=== PATIENT | female | born 1950 | race Caucasian/White ===

== ENCOUNTER 2020-02-29 02:24 | Emergency (ER) | END 2020-02-29 04:50 | disposition left against medical advice (07) | LOC: ER 02:24 | DX: Z53.21 Procedure and treatment not carried out due to patient leaving prior to being seen by health care provider (principal) ==

== ENCOUNTER 2020-03-19 14:01 | Emergency (ER) | payer MEDICARE ==
--- NOTE | 2020-03-19 14:47 | PSYCHOLOGICAL NOTE ---
Psych Note - Psych Note Date seen by psych provider: 03/19/20 Psych Note: At [address] [place] [employer] Crisis Counselor provided the following collateral information: Patient moved from [place] to [place] 3-4 months ago. Patient has a history of alcoholism, depression, and psychosis. She was discharged from [facility] for alcohol detoxification over the past couple days. She fell 4 times from yesterday through this morning and sustained injuries (possible broken nose, back pain). Unsure if falls are related to alcohol or medications. He medication were scattered (not even in respective bottles) throughout her disorganized apartment, she had pain medications from 2 years ago, and she took all her medication this morning when there are some to be taken at night. She presented disoriented at times and noted visual hallucination of a midget running up top her with a sign. Patient thinks she can drive even in current state. There have been multiple EMS and Law Enforcement calls. [facility] are involved and Nicole ended up on scene. Clinical Presentation: Altered Mental Status Psychosis Recent Alcohol Detoxification Impression/Plan: Patient has severely impaired insight and judgment related to her ability to make decisions, understand what's going on, drive, and care for herself. Patient is recommended for a 24 Hour Petition for Evaluation. Consulted with Dr. Flowers regarding the management and care of patient. ED Physician in agreement with recommendations.
--- NOTE | 2020-03-19 15:09 | ER Document Report ---
ED General <JEFFY PAIZ - Last Filed: 03/20/20 17:30> - General Mode of Arrival: Medic Information source: Patient <RACIEL CANTRELL - Last Filed: 03/20/20 19:01> - General Chief Complaint: Altered Mental Status Stated Complaint: PSYCH Time Seen by Provider: 03/19/20 14:26 Primary Care Provider: [facility] [Outside] - Follow up as needed (local voluntary inpatient for detoxification and other mental health issues) [facility] [Outside] - Follow up as needed (To initiate services walk in Tuesday-Tuesday 8:00AM-12:00PM/Noon.) [facility] [Outside] - Follow up as needed [facility] [Outside] - Follow up as needed (To initiate services walk in Tuesday-Tuesday 8:00AM-4:30PM.) [facility] [Outside] - Follow up as needed BRANDI SANCHEZ DO [Primary Care Provider] - Follow up as needed Notes: 69-year-old female patient presenting to the emergency department with complaints of recurrent falls. Patient was apparently discharged from the [facility] for alcohol abuse approximately 3 days ago. She reports that she fell 4 times yesterday and one time this morning. Apparently her landlord got involved when they went to check on her today found her to have bruising to her face and abrasions across her nose so they decided to call EMS and law enforcement. It is reported to me that Dr. Rashawn Flowers was on scene as she was working today as a [facility] mental health liaison. She had concerns about patient's ability to make decisions for herself and requested that she be brought to the emergency department for IVC and mental health evaluation. Patient reports she lives alone she moved here a few months ago and has not been able to get her apartment set up secondary to her chronic back pain. She denies any suicidal homicidal ideations. She does get off topic easily but does mostly answer questions appropriately. She reports she was discharged from [facility] a few days ago. She does report that she bought some alcohol immediately after she was discharged however she took one sip and decided that she did not want to "go down that road again". Patient denies any acute complaints today, states that she has pain to her bilateral knees and back which are both chronic in nature. (RACIEL CANTRELL) - Related Data Allergies/Adverse Reactions: No Known Allergies Allergy (Unverified 02/29/20 03:41) Past Medical History - General Information source: Patient, Emergency Med Personnel - Social History Smoking Status: Unknown if Ever Smoked Chew tobacco use (# tins/day): No Frequency of alcohol use: Heavy - quit recently Drug Abuse: None Family History: Reviewed & Not Pertinent - Past Medical History Cardiac Medical History: Reports: Hx Congestive Heart Failure - possible, dx by [facility] recently, Hx Hypercholesterolemia, Hx Hypertension Pulmonary Medical History: Reports: None EENT Medical History: Reports: None Neurological Medical History: Reports: None Endocrine Medical History: Reports: None Renal/ Medical History: Reports: None Malignancy Medical History: Reports: None GI Medical History: Reports: None Musculoskeletal Medical History: Reports None Skin Medical History: Reports None Psychiatric Medical History: Reports: Hx Depression Surgical Hx: Negative - Immunizations History of Pneumococcal Vaccine: Unknown History of Influenza Vaccine for 03/2019 - 08/2019 Season: Unknown <RACIEL CANTRELL - Last Filed: 03/20/20 19:01> Review of Systems - Review of Systems Constitutional: No symptoms reported EENT: No symptoms reported Cardiovascular: No symptoms reported Respiratory: No symptoms reported Gastrointestinal: No symptoms reported Genitourinary: No symptoms reported Female Genitourinary: No symptoms reported Musculoskeletal: No symptoms reported Skin: See HPI Hematologic/Lymphatic: No symptoms reported Neurological/Psychological: No symptoms reported <RACIEL CANTRELL - Last Filed: 03/20/20 19:01> Physical Exam - General General appearance: Alert In distress: None - HEENT Eyes: Periorbital ecchymosis - Right Conjunctiva: Normal Extraocular movements intact: Yes Pupils: PERRL Ears: Normal External canal: Normal Tympanic membrane: Normal Nasal: Ecchymosis Mouth/Lips: Normal Mucous membranes: Normal Pharynx: Normal Neck: Normal - Respiratory Respiratory status: No respiratory distress Chest status: Tender - Left ribs. No: Ecchymosis Breath sounds: Normal - Cardiovascular Rhythm: Regular Heart sounds: Normal auscultation, S1 appreciated, S2 appreciated Normal capillary refill: Yes - Abdominal Inspection: Obese Distension: No distension Bowel sounds: Normal Tenderness: Nontender Organomegaly: No organomegaly - Back Back: Normal, Nontender. No: CVA tenderness - Extremities General upper extremity: Normal inspection, Nontender, Normal color, Normal ROM, Normal temperature General lower extremity: Normal inspection, Nontender, Normal color, Normal ROM, Normal temperature, Normal weight bearing. No: Terra's sign - Neurological Neuro grossly intact: Yes Cognition: Normal Orientation: AAOx4 Edwards Coma Scale Eye Opening: Spontaneous Darrick Coma Scale Verbal: Oriented Edwards Coma Scale Motor: Obeys Commands Edwards Coma Scale Total: 15 Speech: Normal Sensory: Normal - Psychological Associated symptoms: Normal affect, Normal mood - Skin Skin Temperature: Warm Skin Moisture: Dry Skin Color: Normal <RACIEL CANTRELL - Last Filed: 03/20/20 19:01> - Vital signs Vitals: Temp Pulse Resp BP Pulse Ox 98.5 F 76 16 122/73 100 03/19/20 15:01 03/19/20 15:01 03/19/20 15:01 03/19/20 15:01 03/19/20 15:01 Course - Laboratory Result Diagrams: 03/19/20 14:30 03/19/20 14:30 <JEFFY PAIZ - Last Filed: 03/20/20 17:30> - Laboratory Result Diagrams: 03/19/20 14:30 03/19/20 14:30 <RACIEL CANTRELL - Last Filed: 03/20/20 19:01> - Re-evaluation Re-evalutation: Patient's work-up today shows an acute urinary tract infection. She was given an injection of Rocephin. A urine culture is pending. Patient is alert, oriented, denies SI or HI. She has been placed on IVC papers by the mental health team. I have made an inquiry to them regarding the reason for the IVC petition. I am awaiting clarification. I have also briefed my attending physician Dr. Rivera on the situation. Patient asking why she is being held here against her will. She states that law enforcement went into her apartment and went through all of her belongings without a warrant. Patient admits that her house is unorganized. She states she has not completely unpacked and set up her apartment away she would like it secondary to her chronic pain issues and not having any help in the area other than her daughter who is been unable to come and help her. She does admit that her medications were scattered across a dresser. She states she usually keeps them in her nightstand however it was easier for her to get them off of the top of the dresser. She denies abusing any medications. Handout given to Elsy Bates at the bedside. Dr. Flowers also came to the bedside we all explained to the patient what the status was and that she will be staying here on a 24 petition due to concerns that Dr. Flowers had at the home. Patient is very upset and disagreeable to this. . 03/20/20 17:30 Patient reevaluated, she has been now cleared by mental health team. She has been given resources, she has been set up with community paramedics. Patient asked for a prescription for a walker one was provided. Her prescription for cephalexin was also sent in. Urine culture is still pending. Patient understands ED return precautions. (RACIEL CANTRELL) - Vital Signs Vital signs: Temp Pulse Resp BP Pulse Ox 99.2 F 89 18 118/69 96 03/20/20 14:00 03/20/20 14:00 03/20/20 14:00 03/20/20 14:00 03/20/20 14:00 - Laboratory Laboratory results interpreted by me: 03/19/20 03/19/20 03/19/20 14:30 14:30 15:40 MCV 100 H MCH 34.5 H AST 40 H Urine Protein 30 H Urine Ketones 20 H Ur Leukocyte Esterase LARGE H Salicylates < 1.0 L Acetaminophen < 10 L Discharge <JEFFY PAIZ - Last Filed: 03/20/20 17:30> <RACIEL CANTRELL - Last Filed: 03/20/20 19:01> - Discharge Clinical Impression: Altered mental status, Has recently quit alcohol use Urinary tract infection Qualifiers: Urinary tract infection type: site unspecified Hematuria presence: without hematuria Qualified Code(s): N39.0 - Urinary tract infection, site not specified Condition: Stable Disposition: HOME, SELF-CARE Additional Instructions: You have been evaluated by both medical and behavioral health teams for altered mental status and recent alcohol detoxification. You have been deemed appropriate for discharge. While in the emergency department you received the following services: Medical screening and assessment, nursing services, dietary services, pharmacological services, one-on-one counseling and/or psychotherapy, environmental services, and continuous observation by a patient product safety administrator. You should take only current home medication that is prescribed to you. Any doctors you see should be informed of all medications you are taking. Often times carrying an updated list is beneficial. Your doctors should also be made aware of your alcohol addiction history. You are encouraged to abstain from any alcohol use and link with as many professional supports as possible. Altered Mental Status An altered mental status is a change in the normal functioning of the brain. This alteration of function can range from minor decreased brain function with some forgetfulness and confusion to complete loss of consciousness and coma. There are many possible causes of an altered mental status and include brain injuries such as trauma or strokes, problems with oxygen supply to the brain, fever and infections of the brain and/or elsewhere in the body, metabolic abnormalities such as low or high blood sugar, overdoses or excessive medication ingestion, and mental and psychiatric illnesses. Sometimes the altered mental status resolves and a definite cause is not determined. If a cause for your altered mental status was found, it has likely been corrected. Your evaluation has not shown any condition that requires that you be admitted to the hospital. It is believed that you are safe to leave and return to your home. If you have a return of your symptoms, you should return for re-evaluation. Follow-Up Plan: You are recommended to follow up with your Primary Care Physician (medical issues and any other referrals you may need such as orthopedic as you mentioned), a local mental health agency for substance abuse treatment ([facility] or [facility]), and neurology (given age, prolonged alcohol use). Referrals to wrap around services such as [facility] have been made, they can assist with medications, often times with ability to get blister packs. If your symptoms persist or worsen co ntact your physician immediately, utilize mobile crisis, or return to the emergency department. Prescriptions: Walker [Ultra-Light Rollator] 1 each NOW #1 each Referrals: BRANDI SANCHEZ DO [Primary Care Provider] - Follow up as needed [facility] [Outside] - Follow up as needed [facility] [Outside] - Follow up as needed [facility] [Outside] - Follow up as needed (To initiate services walk in Tuesday-Tuesday 8:00AM-4:30PM.) [facility] [Outside] - Follow up as needed (To initiate services walk in Tuesday-Tuesday 8:00AM-12:00PM/Noon.) [facility] [Outside] - Follow up as needed (local voluntary inpatient for detoxification and other mental health issues)
[2020-03-19 15:28] LABS: ABSOLUTE EOSINOPHILS # (AUTO) 0.3 10^3/uL (0.0-0.6); ABSOLUTE LYMPHOCYTES (AUTO) 1.6 10^3/uL (0.5-4.7); ABSOLUTE MONOCYTES (AUTO) 0.7 10^3/uL (0.1-1.4); ABSOLUTE NEUT (AUTO) 5.2 10^3/uL (1.7-8.2); BASOPHILS % (AUTO) 0.6 % (0-2); HEMATOCRIT 37.6 % (36.0-47.0); LYMPHOCYTES % (AUTO) 20.8 % (13-45); MEAN CORPUSCULAR HEMOGLOBIN 34.5 pg (27.0-33.4); MEAN CORPUSCULAR HGB CONC 34.5 g/dL (32.0-36.0); MEAN CORPUSCULAR VOLUME 100 fl (80-97); PLATELET COUNT 204 10^3/uL (150-450); RED BLOOD COUNT 3.76 10^6/uL (3.72-5.28); RED CELL DISTRIBUTION WIDTH 12.5 % (11.5-14.0); SEGMENTED NEUTROPHILS % (AUTO) 65.6 % (42-78); TOTAL CELLS COUNTED % (AUTO) 100 %; WHITE BLOOD COUNT 7.9 10^3/uL (4.0-10.5)
--- NOTE | 2020-03-19 15:40 | RADIOLOGY REPORT (SQ) ---
EXAM DESCRIPTION: CT FACIAL AREA WITHOUT IMAGES COMPLETED DATE/TIME: 03/19/2020 3:23 pm REASON FOR STUDY: fall injury COMPARISON: None. TECHNIQUE: Noncontrasted images through the facial bones and orbits windowed for bone and soft tissu e. Additional coronal and sagittal reconstructed images reviewed. All images stored on PACS. All CT scanners at this facility use dose modulation, iterative reconstruction, and/or weight based d osing when appropriate to reduce radiation dose to as low as reasonably achievable (ALARA). [facility]: Dose Right [facility]: CareDose [facility]: Dose Right [facility]: Teradose 4D [facility]: [employer] RADIATION DOSE: CT Rad equipment meets quality standard of care and radiation dose reduction techniq ues were employed. CTDIvol: 30.4 mGy. DLP: 513 mGy-cm. mGy. LIMITATIONS: None. FINDINGS: FACIAL BONES: No fracture or bone lesion. ORBITS: Intact. No fracture. Symmetric intact globes and retroorbital soft tissues. PARANASAL SINUSES: No fluid levels. Prior maxillary antrectomies. SOFT TISSUES: No mass or edema. INFERIOR BRAIN: See separate report of the same date. OTHER: No other significant finding. IMPRESSION: NO ACUTE FINDINGS. TECHNICAL DOCUMENTATION: JOB ID: [id number] Quality ID # [id number]: Final reports with documentation of one or more dose reduction techniques (e.g., Au tomated exposure control, adjustment of the mA and/or kV according to patient size, use of iterative reconstruction technique) 2010 [employer]- All Rights Reserved Reading location - IP/workstation name: [email or web address]
--- NOTE | 2020-03-19 15:42 | RADIOLOGY REPORT (SQ) ---
EXAM DESCRIPTION: CT HEAD WITHOUT IMAGES COMPLETED DATE/TIME: 03/19/2020 3:23 pm REASON FOR STUDY: fall injury COMPARISON: None. TECHNIQUE: Axial images acquired through the brain without intravenous contrast. Images reviewed wi th bone, brain and subdural windows. Additional sagittal and coronal reconstructions were generated. Images stored on PACS. All CT scanners at this facility use dose modulation, iterative reconstruction, and/or weight based d osing when appropriate to reduce radiation dose to as low as reasonably achievable (ALARA). [facility]: Dose Right [facility]: CareDose [facility]: Dose Right [facility]: Teradose 4D [facility]: [employer] RADIATION DOSE: CT Rad equipment meets quality standard of care and radiation dose reduction techniq ues were employed. CTDIvol: 53.2 mGy. DLP: 964 mGy-cm. mGy. LIMITATIONS: None. FINDINGS: VENTRICLES: Prominent. CEREBRUM: No masses. No hemorrhage. No midline shift. Areas of low density in the white matter mos t likely due to chronic micro-vascular ischemic change. No evidence for acute infarction. CEREBELLUM: No masses. No hemorrhage. No alteration of density. No evidence for acute infarction. EXTRAAXIAL SPACES: Mild age-related involutional change. No fluid collections. No masses. ORBITS AND GLOBE: No intra- or extraconal masses. Normal contour of globe without masses. CALVARIUM: No fracture. PARANASAL SINUSES: No fluid or mucosal thickening. SOFT TISSUES: No mass or hematoma. OTHER: No other significant finding. IMPRESSION: MILD CHRONIC CHANGES OF ATROPHY AND MICROVASCULAR ISCHEMIA. NO ACUTE PROCESS. EVIDENCE OF ACUTE STROKE: NO. TECHNICAL DOCUMENTATION: JOB ID: [id number] Quality ID # [id number]: Final reports with documentation of one or more dose reduction techniques (e.g., Au tomated exposure control, adjustment of the mA and/or kV according to patient size, use of iterative reconstruction technique) 2010 [employer]- All Rights Reserved Reading location - IP/workstation name: [email or web address]
--- NOTE | 2020-03-19 15:44 | RADIOLOGY REPORT (SQ) ---
EXAM DESCRIPTION: RIBS LEFT W/PA CHEST IMAGES COMPLETED DATE/TIME: 03/19/2020 3:33 pm REASON FOR STUDY: fall, pain L anterolateral ribs COMPARISON: None. TECHNIQUE: Frontal view of the chest and additional views of the left ribs acquired. NUMBER OF VIEWS: Three view. LIMITATIONS: None. FINDINGS: FRONTAL CXR: No pneumothorax. No pleural effusion. No atelectasis or infiltrates. RIBS: No displaced rib fractures. No lytic or blastic bony lesions. OTHER: No other significant finding. IMPRESSION: NO PNEUMOTHORAX. NO DISPLACED RIB FRACTURES. COMMENT: SITE OF TRAUMA/COMPLAINT MARKED/STAMP COMPLETED: No TECHNICAL DOCUMENTATION: JOB ID: [id number] 2010 [employer]- All Rights Reserved Reading location - IP/workstation name: [email or web address]
[2020-03-19 15:53] LABS: APPEARANCE,URINE CLOUDY; BILIRUBIN,URINE NEGATIVE (NEGATIVE); COLOR,URINE AMBER; GLUCOSE, URINE NEGATIVE (NEGATIVE); KETONES,URINE 20 mg/dL (NEGATIVE); LEUKOCYTE ESTERASE,URINE LARGE (NEGATIVE); NITRITE,URINE NEGATIVE (NEGATIVE); PROTEIN,URINE 30 mg/dL (NEGATIVE); URINE SPECIFIC GRAVITY 1.024; UROBILINOGEN,URINE NEGATIVE mg/dL (<2.0)
[2020-03-19 15:55] LABS: ALBUMIN 4.4 g/dL (3.5-5.0); ALKALINE PHOSPHATASE 93 U/L (38-126); ANION GAP 8 (5-19); ASPARTATE AMINO TRANSFERASE 40 U/L (14-36); BILIRUBIN,DIRECT 0.4 mg/dL (0.0-0.4); BILIRUBIN,TOTAL 0.7 mg/dL (0.2-1.3); BLOOD UREA NITROGEN 10 mg/dL (7-20); CALCIUM 8.9 mg/dL (8.4-10.2); CARBON DIOXIDE 27 mmol/L (22-30); CHLORIDE 102 mmol/L (98-107); GLUCOSE 84 mg/dL (75-110); POTASSIUM 3.8 mmol/L (3.6-5.0); TOTAL PROTEIN 6.7 g/dL (6.3-8.2)
[2020-03-19 15:57] LABS: ACETAMINOPHEN < 10 ug/mL (10-30); ALCOHOL < 10 mg/dL (NONE DETECTED); SALICYLATE < 1.0 mg/dL (2.0-20.0)
[2020-03-19 16:08] LABS: URINE AMPHETAMINES SCREEN NEGATIVE; URINE BENZODIAZEPINES SCREEN NEGATIVE; URINE COCAINE SCREEN NEGATIVE; URINE MARIJUANA (THC) SCREEN NEGATIVE; URINE METHADONE SCREEN NEGATIVE; URINE PHENCYCLIDINE SCREEN NEGATIVE
[2020-03-19 16:09] LABS: URINE BARBITURATES SCREEN UNCONFIRMED POSITIVE
[2020-03-19] MEDS ORDERED: CEFTRIAXONE INJ 1000 MG VIAL IM ONE (16:26)
[2020-03-19] MEDS ORDERED: LIDOCAINE 1% INJ-PF (10 MG/ML) 30 ML SDV IM ONE (16:26)
[2020-03-19] MEDS: CEPHALEXIN 500 MG CAPSULE PO SCH (17:53)
--- NOTE | 2020-03-19 18:16 | EKG REPORT ---
SEVERITY:- ABNORMAL ECG - SINUS RHYTHM CONSIDER LEFT VENTRICULAR HYPERTROPHY : Confirmed by: Abdoul Aguilera MD 19-Mar-2020 18:15:51
[2020-03-19] MEDS ORDERED: ACETAMINOPHEN 325 MG TABLET PO ONE (20:40)
[2020-03-19] MEDS ORDERED: MUPIROCIN CALCIUM 2% CREAM 15 GM TP ONE (20:41)
--- NOTE | 2020-03-19 20:47 | ER Document Report ---
Doctor's Note Notes: 03/19/20 20:43 Assumed care of patient from JORGE Fernando. Patient under IVC. Apparently medics were called today after landlord became concerning that she had fallen several times and had a black eye and abrasion to nose. [employer] also involved and there was concerned that she was a harm to herself because she had taken all her meds today and was trying to drive. It was felt that she was unsafe and the mental health team placed her on 24 hour IVC. JORGE Fernando, Dr. Flowers from mental health and myself went to bedside to explain that patient would be on IVC and reevaluated in the morning. Patient voiced quite a bit of frustration. She does understand that she will stay in the ER over night.
[2020-03-19] MEDS ORDERED: HALOPERIDOL LACTATE INJ 5 MG/1 ML VIAL IM ONE (21:59)
[2020-03-20] MEDS ORDERED: ACETAMINOPHEN 325 MG TABLET PO ONE (06:09)
[2020-03-20] MEDS ORDERED: ACETAMINOPHEN 325 MG TABLET ONE (10:33)
[2020-03-20] MEDS: CEPHALEXIN 500 MG CAPSULE PO SCH ×2 (10:36→17:13)
[2020-03-20] MEDS ORDERED: HALOPERIDOL 5 MG TABLET PO PRN (12:14)
[2020-03-20 14:12] VITALS: BP 118/69
--- NOTE | 2020-03-24 14:32 | PSYCHOLOGICAL NOTE ---
Psych Note - Psych Note Date seen by psych provider: 03/20/20 Time seen by psych provider: 12:59 - Evaluation with patient from [id number]. Collateral from patient's youngest daughter from [id number]. Psych Note: Patient is a 69 year old female in the emergency department on a 24 Hour Petition for Evaluation for altered mental status, getting out of alcohol detoxification a couple days ago, psychosis, medications all over her apartment not even in their respective bottles, apartment in disarray, and concerns for ability to understand what's going on/care for self. Patient reported being sore. Then she proceeded to try to recall events from the past two days (since her discharge from [facility]), piecing things together, and trying to understand what happened in her falls that caused the injuries. She talked about how she had gone outside before dark for fresh air the night before, when she stood up from chair said she thinks her flip flop got caught on the chair, she tripped, fell flat on her face which caused the nose injury and scratches to knees and hand. She also mentioned how the lights went out after that, often she has to set a reset button but didn't think of that right away, was crawling around around boxes trying to change light bulbs/get a knew lamp/hit reset button, got it situated, then went to kitchen to make a salad, took it to her bedroom, went to put salad plate on bed but missed it and fell which is how she thinks she hurt her eye. She maintained she still had lots of packed boxes due to having items of her mother and grandmother which is going to oldest daughter. Patient acknowledged "I upset, it made me very angry when a community commander police reserves came, then other police offers, then a doctor who all insisted in going through my house and that I be seen." She maintained [facility] gave her something for anxiety, then she went home and took Gabapentin, "she felt like she couldn't walk a straight line/felt weird/like reaching out for things but unable to obtain them. She stated her medications had been dumped on her bed because they were all in a bag from her recent detox discharge. She admitted "I do get depressed" but denied mental health history. She admitted to previous detox/alcohol treatment and denied seizure/psychosis/significant withdrawal symptoms from alcohol withdrawal. Patient identified she had an overdose attempt "once back in 1979, had kicked a commander police reserves, and was hospitalized then. She mentioned how she raised 3 daughters, noted one resides in [place], who dealt with addiction issues. Patient talked about needed knee replacement surgery, pain management, other medical things, and how she sees Dr. Ronald Dumont in the big [place] building on [address] [place]. She noted more difficulty with knee and legs and having gained 20 pounds since COVID-19 pandemic. Patient denied family mental health and dementia history. Patient was alert and oriented to self, person, place, time and situation. Mood was euthymic with congruent affect. She denied current suicidal and homicidal ideation. Patient did not appear to be responding to internal stimuli as evidenced by fair eye contact, answering questions appropriately when addressed, carrying on dialogue conversation and being engaged in evaluation. The issue is concern for confabulation. Thought processes were more linear and organized. Conversational speech was within normal limits for rate, tone and prosody. Intellectual abilities are estimated to be average. Insight, judgment and impulse control were fair as evidenced by trying to process events and piece things together. From [id number] obtained collateral from patient's youngest daughter Jennifer Quinn ([phone]). She stated patient had "a messed up childhood, a bad marriage, the combination had her turning to alcohol." She identified patient has gone to AA meetings off and on for years. She noted "when things get hard it is difficult for her to stay on track, right now her knees are hurting her more and she needs a knee replacement, as well as not having a love life currently." Daughter stated "she turns to alcohol and prescription medications." She commented "do not send her home with pain medications, muscle relaxers, Gabapentin as she mixes them with alcohol saying it makes them stronger and helps take the pain away." She stated patient moved to [place] recently and had resided with her in [place], [place] prior. She confirmed a sister who resides more locally "but is not living a healthy life style." She stated patient was at the detox facility in [place] for maybe 1-2 days, patient called her saying she was back home and daughter thought "that was not long enough and patient sounded like she was 3 sheets to the wind." She denied previous mental health hospitalizations but noted previous detox placements ([place], [place] and a place in [place]). She described patient as "good at talking her way in and out of situation, being well educated." She denied patient using weapons to hurt/harm/kill self and commented "but with medication and alcohol yes, when I was younger there were plenty of times where she was passed out on the floor, often as an overdose from overusing." She denied family history of mental health. Daughter stated she was present at the beginning of February to help mother move in to local apartment but had her son and when patient drinks daughter avoids her due to daughter's own family. She stated patient "has uncontrollable bowels and there were areas on the couch were patient had accidents." Made referral to [facility] and faxed Patient Referral Form to Primary Care Physician Dr. Ronald Dumont for care coordination/continuity of care. Patient asked for a walker and stated she has a cane at home. Clinical Presentation: Altered Mental Status Psychosis Urinary Tract Infection Recent Alcohol Detoxification Per daughter history of self medicating with alcohol and prescribed medications Concerns for Neurodegenerative Processes Impression/Plan: Patient is cleared from acute psychiatric services. Recommendation to [facility] 24 Hour Petition for Evaluation. She denied suicidal and homicidal ideation which were never presenting concerns. She did not appear to be responding to internal stimuli given appropriate interactions and trying to piece things together. She did not present as altered. A [employer] Adult Protective Service report was made, a referral was emailed to [facility], and a patient referral form/Head CT from this visit was faxed to her primary care physician for care coordination and continuity of care. Recommendation for primary care follow up, neurology follow up and mental health follow up (documented walk in times for both [facility] and [facility]). Also provided contact information for both local mobile crisis teams and the [facility]. Concern for neurodegenerative processes and Urinary Tract Infection as these can cause and/or exacerbate psychosis/cognitive impairment/mood lability/aggression. Provided the outpatient mental health resource sheet which included on the resource information. Consulted with Dr. Flowers regarding the management and care of patient. ED Physician in agreement with recommendations.
== END 2020-03-20 18:15 | disposition home or self-care (01) ==
LOC: ER 14:01 → EEVIPCON 14:01 → ER 03-20 18:15
DX: N39.0 Urinary tract infection, site not specified (principal); R41.82 Altered mental status, unspecified; Z91.81 History of falling; G89.29 Other chronic pain; M54.9 Dorsalgia, unspecified; E78.00 Pure hypercholesterolemia, unspecified; I10 Essential (primary) hypertension
CPT/HCPCS: 93005; 99285; 96372; 36415; 87086; 80307 ×4; 85025; 80053; 81001; 71101; 70450; 70486; 93010; A9270 ×5; J1630; J3490; J0696

== ENCOUNTER 2020-06-26 01:07 | Emergency (ER) | payer MEDICARE ==
--- NOTE | 2020-06-26 03:51 | ER Document Report ---
ED Respiratory Problem - General Chief Complaint: Shortness Of Breath Stated Complaint: DIFFICULTY BREATHING Time Seen by Provider: 06/26/20 03:03 Primary Care Provider: YUE STEVENSON MD [Primary Care Provider] - Follow up as needed Mode of Arrival: Ambulatory Information source: Patient Notes: 70-year-old female presents to ED for complaint of shortness of breath and fatigue. She does have a history of CHF. And does not take her Lasix the way she is prescribed she said that when she does she gets dizzy because her potassium gets low and she does not take potassium. Patient is alert and oriented respirations are regular nonlabored O2 sat is 99% respirations are 18 pulse is 88. Constitutional: Negative for fever. HENT: Right upper molar broken with a cavity. She states she needs to get it fixed but she will need antibiotics in order to get it repaired Eyes: Negative for visual changes. Cardiovascular: Negative for chest pain. Respiratory: Breath with a history of CHF she also has bilateral pedal edema with edema up to her knees and increasing fatigue Gastrointestinal: Negative for abdominal pain, vomiting or diarrhea. Genitourinary: Negative for dysuria. Musculoskeletal: Negative for back pain. Skin: Negative for rash. Neurological: Negative for headaches, weakness or numbness. 10 point ROS negative except as marked above and in HPI. VITAL SIGNS: Within normal limits. GENERAL: No acute distress, non-toxic appearance. HEAD: Normal with no signs of head trauma. NECK: Normal range of motion, no tenderness, supple, no lymphadenopathy, No adenopathy, no JVD. CHEST: Clear breath sounds bilaterally. No wheezes, rales, or rhonchi. CARDIAC: Regular rate and rhythm. S1 and S2, without murmurs, gallops, or rubs. VASCULAR: Peripheral edema up to the lower leg just below the knee ABDOMEN: Normal and soft with no tenderness, no masses or pulsatile masses. GASTROINTESTINAL: Bowel sounds normal GENITOURINARY: Normal, No tenderness LYMPATHTIC: No lymphadenopathy noted. MUSCULOSKELETAL: Good range of motion of all major joints. Extremities without clubbing, cyanosis or edema. NEUROLOGICAL: Alert and oriented x 3. No focal sensory or strength deficits. Speech normal. Follows commands appropriately. PSYCHIATRIC: Normal Affect, judgement and mood. SKIN: Normal appearance with no rashes or lesions. - HPI Patient complains to provider of: CHF, Short of breath Onset: Other - Chronic Duration: Worse/persistent Initiating Event: Other - CHF Quality of pain: Achy Severity: Moderate Pain Level: 2 Context: Hx CHF Short of Breath: Mild Cough: Nonproductive Sputum amount: None Associated symptoms: Cough, Short of breath, Other - Increased fatigue increased swelling to the feet Similar symptoms previously: Yes Recently seen / treated by doctor: No - Related Data Allergies/Adverse Reactions: No Known Allergies Allergy (Unverified 02/29/20 03:41) Home Medications: metoprolol, atorvastatin, seroquel, lasix, losartan/hctz, Past Medical History - General Information source: Patient - Social History Smoking Status: Former Smoker Frequency of alcohol use: Heavy - States that she drinks alcohol daily Drug Abuse: None Lives with: Alone Family History: Reviewed & Not Pertinent Patient has suicidal ideation: No Patient has homicidal ideation: No - Past Medical History Cardiac Medical History: Reports: Hx Congestive Heart Failure - possible, dx by [facility], Hx Hypercholesterolemia, Hx Hypertension Pulmonary Medical History: Reports: None EENT Medical History: Reports: None Neurological Medical History: Reports: None Endocrine Medical History: Reports: None Renal/ Medical History: Reports: None Malignancy Medical History: Reports: None GI Medical History: Reports: Hx Gastritis, Hx Gastroesophageal Reflux Disease, Hx Hiatal Hernia, Other - Umbilical hernia Musculoskeletal Medical History: Reports Hx Arthritis, Reports Hx Musculoskeletal Deformity Skin Medical History: Reports None Psychiatric Medical History: Reports: Hx Anxiety, Hx Depression Traumatic Medical History: Reports: None Infectious Medical History: Reports: None Past Surgical History: Reports: Hx Cholecystectomy, Hx Tonsillectomy, Hx Umbilical Hernia Physical Exam - Vital signs Vitals: Temp Pulse Resp BP Pulse Ox 98.5 F 96 16 114/61 98 06/26/20 02:21 06/26/20 02:21 06/26/20 02:21 06/26/20 02:21 06/26/20 02:21 Course - Re-evaluation Re-evalutation: 06/26/20 07:51 Discussed hemoglobin of 8.7 and low her hematocrit with Dr. Tan. I did go and do a rectal exam which was negative for occult blood. Patient has stated she had some dark diarrhea for couple days. She states she has been short of breath and fatigued for a long time she just noticed over the last couple days it was worse than normal is why she had come to the emergency room. She states she is also always fatigued and short of breath. She states she thought that the last time she went to [facility] that they had told her that she was anemic and that she needed to eat more red meat but she has been discharged from their practice due to her walking out of her visit while the doctor was out of the room. She states she is also been discharged from [facility] and she did not like them. He states she does plan to make an appointment with [facility] but she does not have a primary care doctor at this time. - Vital Signs Vital signs: Temp Pulse Resp BP Pulse Ox 98.5 F 96 18 119/74 97 06/26/20 02:21 06/26/20 02:21 06/26/20 03:15 06/26/20 03:15 06/26/20 03:15 - Laboratory Results Result Diagrams: 06/26/20 03:50 06/26/20 03:50 Laboratory Results Interpreted: 06/26/20 06/26/20 06/26/20 03:50 03:50 03:50 RBC 2.88 L Hgb 8.7 L Hct 26.0 L NT-Pro-B Natriuret Pep 245 H Total Protein 6.2 L Critical Laboratory Results Reviewed: Yes Attending or Supervising Physician who Reviewed Labs: ONEYDA TAN - Radiology Results Critical Radiology Results Reviewed: No Critical Results Discharge - Discharge Clinical Impression: Pain due to dental caries, Short of breath on exertion Condition: Stable Disposition: HOME, SELF-CARE Additional Instructions: You were seen today for shortness of breath and increasing fatigue. States you have been having shortness of breath and fatigue for a long time. You state you recently saw Dr. Stevenson and your primary care at the time and you were discharged from their practice. That you had been diagnosed with CHF and at their last visit they had told you you were slightly anemic. Anemia hemoglobin is 8.7 and I have given you a written report of this as well as your complete CBC and chemistry and your chest x-ray You have been found to have a significant anemia (a lower than normal amount of red blood cells). Anemia can be due to iron deficiency, vitamin deficiency, abnormal bleeding, or internal diseases. Usually, further tests are necessary to find the exact cause of the anemia. The most common cause of anemia is iron deficiency, often brought on by blood loss. This can be treated with iron supplements. If this appears to be the most likely cause, iron tablets may be prescribed even before all tests are complete. Contact the doctor at once if you note black or tarry-looking stools, bloody vomiting, shortness of breath, chest pain, or faintness. These take all of your medicines as prescribed. If you take your Lasix and get a low potassium you can eat bananas to increase your potassium. There are many foods you can eat they will help to you to increase your potassium. It is very important that you call a primary care doctor today and get follow-up concerning this anemia as well as your chronic congestive heart failure and other medical problems. TOOTHACHE: Your pain is due to dental decay. The tooth must be repaired in order for you to feel better. You will, therefore, be referred to a dentist. We do not have dentists on the staff at [facility]. Severe swelling or drainage around a tooth usually means a dental abscess. This also requires evaluation and treatment by the dentist, but antibiotics may be prescribed while awaiting dental treatment. You should be rechecked immediately if you develop major swelling of the face, increasing pain, a lump in the jaw or gums, headache, difficulty swallowing, or fever. PENICILLIN V K: You have been given a prescription for Penicillin VK. Your physician has determined that this is the best antibiotic for your condition. Pen VK can be taken with meals, however more of the antibiotic gets into the bloodstream if it's taken on an empty stomach. Penicillin usually has no side effects. However, allergy to penicillins is common. If you have had an allergic reaction to any drug of the penicillin family, you should never take any other penicillin. Notify your doctor at once if you develop hives, itching, swelling, faintness, or shortness of breath. FOLLOW-UP CARE: You have been referred for follow-up care to the dentists listed below. Call the dentists office for an appointment as you were instructed or within the next two days. If you experience worsening or a significant change in your symptoms, notify the physician immediately or return to the Emergency Department at any time for re-evaluation. [facility] [address] [place] [address] [facility] [address] [facility] [address] [email or web address] [address] [place] [address] Tuesday- 8:00am to 5:00 pm Will see patients from other [facility]. Charges based on income and family size and accepts Medicare, Medicaid, and Insurances Will pull molars [facility] [address] Hours of Operation 8:00 am - 4:30 pm weekdays The following dental offices accept Medicaid: [facility] Dr. Coles Dr. Rodriguez Dr. Patterson Dr. Rodriguez Reed Scherer Lutsavage, and [facility] Dr. Bennett ([place]) Dr. Johntson ([place]) [facility] Drs. Cerna ([place]) Dr. De La Paz ([place]) [facility] Dr. Cage ([place]) Drs. Hunter and ([place]) Medicaid Care Line Prescriptions: Penicillin V Potassium [Penicillin Vk 500 mg Tablet] 500 mg PO BID #20 tablet Referrals: [facility] [Provider Group] - Follow up as needed [facility] [Provider Group] - Follow up as needed [facility] [Provider Group] - Follow up as needed [facility] [Provider Group] - Follow up as needed
[2020-06-26 04:40] LABS: ABSOLUTE BASOPHILS # (AUTO) 0.1 10^3/uL (0.0-0.2); ABSOLUTE EOSINOPHILS # (AUTO) 0.3 10^3/uL (0.0-0.6); ABSOLUTE LYMPHOCYTES (AUTO) 2.5 10^3/uL (0.5-4.7); ABSOLUTE MONOCYTES (AUTO) 0.6 10^3/uL (0.1-1.4); ABSOLUTE NEUT (AUTO) 2.9 10^3/uL (1.7-8.2); BASOPHILS % (AUTO) 1.2 % (0-2); HEMOGLOBIN 8.7 g/dL (12.0-15.5); MEAN CORPUSCULAR HEMOGLOBIN 30.3 pg (27.0-33.4); MEAN CORPUSCULAR HGB CONC 33.5 g/dL (32.0-36.0); MEAN CORPUSCULAR VOLUME 90 fl (80-97); MONOCYTES % (AUTO) 8.6 % (3-13); PLATELET COUNT 239 10^3/uL (150-450); RED BLOOD COUNT 2.88 10^6/uL (3.72-5.28); RED CELL DISTRIBUTION WIDTH 13.7 % (11.5-14.0); SEGMENTED NEUTROPHILS % (AUTO) 46.2 % (42-78); TOTAL CELLS COUNTED % (AUTO) 100 %; WHITE BLOOD COUNT 6.4 10^3/uL (4.0-10.5)
[2020-06-26 04:48] LABS: ALBUMIN 3.8 g/dL (3.5-5.0); ALKALINE PHOSPHATASE 62 U/L (38-126); ANION GAP 5 (5-19); ASPARTATE AMINO TRANSFERASE 23 U/L (14-36); BILIRUBIN,DIRECT 0.3 mg/dL (0.0-0.4); BILIRUBIN,TOTAL 0.3 mg/dL (0.2-1.3); BLOOD UREA NITROGEN 19 mg/dL (7-20); CALCIUM 8.8 mg/dL (8.4-10.2); CARBON DIOXIDE 29 mmol/L (22-30); CHLORIDE 105 mmol/L (98-107); GLUCOSE 96 mg/dL (75-110); POTASSIUM 3.9 mmol/L (3.6-5.0); TOTAL PROTEIN 6.2 g/dL (6.3-8.2)
--- NOTE | 2020-06-26 05:02 | RADIOLOGY REPORT (SQ) ---
EXAM DESCRIPTION: X-ray two view chest. CLINICAL HISTORY: 70 years Female, chf short of breath COMPARISON: 03/19/2020 TECHNIQUE: PA and Lateral views of the chest performed on 06/26/2020 at 4:26 AM FINDINGS: The lungs are well expanded and are clear. The costophrenic sulci are clear. There is no evidence of a pneumothorax. The cardiac silhouette is normal in size. The mediastinal contours are normal. No acute osseous abnormalities are identified. No focal soft tissue abnormalities are identified. IMPRESSION: No evidence of acute intrathoracic disease.
[2020-06-26] MEDS ORDERED: PENICILLIN V POTASSIUM 500 MG TABLET PO ONE (08:32)
[2020-06-26 09:16] VITALS: BP 136/78
--- NOTE | 2020-06-26 23:57 | EKG REPORT ---
SEVERITY:- OTHERWISE NORMAL ECG - SINUS RHYTHM BORDERLINE LEFT AXIS DEVIATION : Confirmed by: Ga Conley 26-Jun-2020 23:55:57
== END 2020-06-26 09:12 | disposition home or self-care (01) ==
LOC: ER 01:07
DX: I11.0 Hypertensive heart disease with heart failure (principal); I50.9 Heart failure, unspecified; K02.9 Dental caries, unspecified; K08.89 Other specified disorders of teeth and supporting structures; R06.02 Shortness of breath; R53.83 Other fatigue; R19.5 Other fecal abnormalities; R42 Dizziness and giddiness; E78.00 Pure hypercholesterolemia, unspecified; Z79.899 Other long term (current) drug therapy; Z87.891 Personal history of nicotine dependence; Z91.14 Patient's other noncompliance with medication regimen
CPT/HCPCS: 36415; 71046; 80053; 82270; 83735; 83880; 84443; 85025; 93005; 93010; 99285